=== PATIENT | female | born 1985 | race Caucasian/White ===

== ENCOUNTER → 2018-09-18 | Outpatient (CLI) | payer OTHER ==
[~2018-09-18] MED LIST: PRENATAL TABLE1 EAC1 PO
== END | disposition home or self-care (01) ==
LOC: OBS/DEL 00:59 → NST 00:59
DX: O26.893 Other specified pregnancy related conditions, third trimester (principal); Z04.1 Encounter for examination and observation following transport accident; Z34.83 Encounter for supervision of other normal pregnancy, third trimester

== ENCOUNTER 2018-09-23 06:34 | Inpatient (IN) | payer OTHER ==
[~2018-09-23] VITALS: Ht 162.6 cm; Wt 79.8 kg
== END 2018-09-25 13:30 | DRG 807 ==
LOC: OB/GYN → LDR 06:34 → OB/GYN 18:21
PROC: 10E0XZZ Delivery of Products of Conception, External Approach (ICD-10-PCS; principal; 2018-09-23)
PROC: 4A1HXCZ Monitoring of Products of Conception, Cardiac Rate, External Approach (ICD-10-PCS; 2018-09-23)
PROC: 0UQGXZZ Repair Vagina, External Approach (ICD-10-PCS; 2018-09-23)
PROC: 4A033R1 Measurement of Arterial Saturation, Peripheral, Percutaneous Approach (ICD-10-PCS; 2018-09-23)
DX: O71.4 Obstetric high vaginal laceration alone (principal); Z37.0 Single live birth; Z3A.40 40 weeks gestation of pregnancy